=== PATIENT | male | born 1990 | race Caucasian/White ===

== ENCOUNTER 2017-06-01 16:13 | Emergency (ER) | payer SELFPAY ==
[2017-06-01 17:03] VITALS: BP 144/67; PULSE 77; RESP 18; TEMP 98; O2SAT 98
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
[2017-06-01] MEDS ORDERED: NORC5TAB PO (20:11)
[2017-06-01] MEDS ORDERED: NAPR500 PO (20:11)
[2017-06-01] MEDS ORDERED: AUGM875T3 PO (20:11)
--- NOTE | 2017-06-01 20:25 | PD ---
HPI Chief Complaint: Facial Pain or Swelling Time Seen by Provider: 19:51 Travel History International Travel<30 days: No Contact w/Intl Traveler<30days: No Traveled to known affect area: No History of Present Illness HPI Patient comes emergency department complaining of nasal bone pain that began 2 days ago while playing soccer with his friends. Patient reports that he ran into 1 of his friends elbows causing the pain. Patient reports he did have some epistaxis with this. Patient reports he noticed a little blood yesterday after trying to clear his sinuses and then spit. Patient denies any other epistaxis. Describes the pain as a strong pain that occasionally radiates to his head. Patient denies doing anything for this. Pain is worse palpation. Denies any change in vision, difficulty breathing, neck pain, chest pain, shortness of breath, loss of consciousness, being on blood thinners, or other concerns. Please note H&P is obtained to the use of hospital interpreting service [employer] as patient is primarily [place]ym[place]-speaking. PFSH Past Medical History Medical History: Denies Significant Hx Immunizations Current: Yes Tetanus Vaccination: Unknown Influenza Vaccination: No Social History Alcohol Use: Yes (occ) Tobacco Use: Yes Substance Use: No Allergies-Medications (Allergen,Severity, Reaction): Coded Allergies: No Known Allergies (Unverified , 06/01/17) Reported Meds & Prescriptions Reported Meds & Active Scripts Active [place] (Hydrocodone-Acetaminophen) 5 Mg-325 Mg Tab 1 Tab PO Q8HR PRN Naprosyn (Naproxen) 500 Mg Tab 500 Mg PO Q12HR PRN Augmentin (Amoxicillin-Clavulanate) 875-125 Mg Tab 1 Tab PO BID 10 Days Review of Systems Except as stated in HPI: all other systems reviewed are Neg Physical Exam Narrative GENERAL: Well-developed, overly nourished, in no acute distress, and non-ill appearing. SKIN: Focused skin assessment warm and dry. HEAD: Atraumatic. Normocephalic. EYES: Pupils equal and round. EOMI. No scleral icterus. No injection or drainage. No ecchymosis no periorbital bilaterally. No flattening of the cheek bones. ENT: No nasal bleeding or discharge. Mucous membranes pink and moist. No septal hematoma. No epistaxis. No crepitus over the nose. Patient reports tenderness palpation over the bridge of the nose. No bruising under the tongue. NECK: Trachea midline. Supple. No nuclear rigidity. RESPIRATORY: No accessory muscle use. No respiratory distress. MUSCULOSKELETAL: No obvious deformities. No clubbing. No cyanosis. No edema. Full range of motion. NEUROLOGICAL: Awake and alert. No obvious cranial nerve deficits. Motor grossly within normal limits. Normal speech. PSYCHIATRIC: Appropriate mood and affect; insight and judgment normal. Data Data Last Documented VS Vital Signs Date Time Temp Pulse Resp B/P (MAP) Pulse Ox O2 Delivery O2 Flow Rate FiO2 06/01/17 17:03 98.0 77 18 144/67 (92) [address] Brain W/O Iv Contrast(Rout) (06/01/17 ) Ct Facial Bones W/O Iv Cont (06/01/17 ) Mandatory Outpatient Referral (06/01/17 20:26) Ed Discharge Order (06/01/17 20:26) [facility] Medical Decision Making Medical Screen Exam Complete: Yes Emergency Medical Condition: Yes Interpretation(s) Last Impressions Maxillofacial CT 06/01/17 0000 Signed Impressions: Service Date/Time: Thursday, June 01, 2017 18:23 - CONCLUSION: Fractures of the left nasal bone and lateral right maxillary sinus wall. Bran Galeano MD Head CT 06/01/17 0000 Signed Impressions: Service Date/Time: Thursday, June 01, 2017 18:23 - CONCLUSION: No acute findings in the brain. Bran Galeano MD Differential Diagnosis Fracture, contusion, intracranial hemorrhage, closed head injury Narrative Course The patient suffered a nasal fracture. There is no nasal (clear or bloody) discharge or bleeding and no septal hematoma. There are no visual problems or significant bruising under eyes or midface. There is no evidence to suggest entrapment and there is no facial nerve palsy. There is no flattening of the cheek or altered sensation underneath the eye. The facial bones appear stable and nonmobile. The airway is intact and the patient is able to tolerate fluids. Pain is well controlled and there is no evidence or clinical orbital wall fracture, especially entrapment. The face appears stable and no evidence of facial fracture otherwise. Plan of care and management was discussed with the patient with follow up with ENT when swelling reduced for reevaluation and possible realignment (if necessary after swelling reduced). The patient agreed with plan of care. Patient in no obvious distress upon re-evaluation. All pertinent Radiology result(s) discussed with patient. Patient was asked if they wanted to speak to my attending, which the patient did not wish to do at this time. Any questions/ concerns in reference to patient diagnosis/condition discussed and clarified prior to patient's discharge. Reinforced sheer importance of close follow up with ENT. Instructed patient to return to ED immediately, if symptoms return/ worsen. Patient showed understanding of above instructions. Further instructions and recommendations were detailed in discharge paperwork. Patient ambulated without difficulty out of ED at discharge. Diagnosis Primary Impression: Nasal bone fracture Qualified Codes: S02.2XXA - Fracture of nasal bones, initial encounter for closed fracture Additional Impression: Maxillary sinus fracture Qualified Codes: S02.401A - Maxillary fracture, unspecified side, initial encounter for closed fracture Referrals: Ashu Arndt MD Patient Instructions: General Instructions, Nasal Fracture (ED) Additional Instructions: Follow-up with Dr. Arndt in 3-5 days for reevaluation. Call his office to make an appointment. Take all medication as prescribed. Sleep angle approximately 30 or higher decrease pain and swelling. Apply ice to affected area 20 min/h as needed for pain. Sneeze with her mouth open, do not drink through a straw, avoid anything that may cause reinjury to the nose, and do not smoke until reevaluated by ENT. Return to the emergency department if symptoms get worse. Med/Other Pt SpecificInfo: Prescription(s) given Scripts Hydrocodone-Acetaminophen ([place]) 5 Mg-325 Mg Tab 1 TAB PO Q8HR Y for PAIN GREATER THAN 7, #7 TAB 0 Refills Prov: Viral Bell MD 06/01/17 Naproxen (Naprosyn) 500 Mg Tab 500 MG PO Q12HR Y for PAIN SCALE 1 TO 10, #14 TAB 0 Refills Prov: Viral Bell MD 06/01/17 Amoxicillin-Clavulanate (Augmentin) 875-125 Mg Tab 1 TAB PO BID for Infection for 10 Days, #20 TAB 0 Refills Prov: Viral Bell MD 06/01/17 Disposition: 01 DISCHARGE HOME Condition: Stable Edward Kumar Jun 01, 2017 20:25
== END 2017-06-01 20:42 | disposition home or self-care (01) ==
LOC: NEPK 16:13
DX: S02.2XXA Fracture of nasal bones, initial encounter for closed fracture (principal); S02.40EA Zygomatic fracture, right side, initial encounter for closed fracture; W50.0XXA Accidental hit or strike by another person, initial encounter; Y93.66 Activity, soccer
CPT/HCPCS: 70450; 70486; 99283